=== PATIENT | male | born 1945 | race Caucasian/White ===

== ENCOUNTER 2020-07-08 13:54 | Outpatient (CLI) | payer MEDICARE, SELFPAY ==
--- NOTE | 2020-07-08 13:58 | ECG_ITS ---
Measurements Intervals [place] Rate: 67 P: 52 [place]: 187 QRS: -46 QRSD: 104 T: 52 QT: 396 QTc: 418 Interpretive Statements SINUS RHYTHM FREQUENT ATRIAL PREMATURE COMPLEXES LEFT ANTERIOR FASCICULAR BLOCK ABNORMAL ECG Electronically Signed On 07-08-2020 14:19:01 DIESEL MAINTENANCE TECHNICIAN by Yandel Kamara D.O.
[2020-07-08 14:31] LABS: Anion Gap 7 mmol/L (8-16); Blood Urea Nitrogen 22 mg/dL (9-20); Calcium 9.1 mg/dL (8.4-10.2); Carbon Dioxide 33 mmol/L (22-30); Chloride 99 mmol/L (98-107); Estimated Glomerular Filt Rate > 60; Glucose 108 mg/dL (75-110); Potassium 3.8 mmol/L (3.4-5.0); Sodium 139 mmol/L (137-145)
== END 2020-07-08 13:55 | disposition home or self-care (01) ==
LOC: ANHSURGERY 13:58
PROVIDERS: Anesthesiology; PCP Internal Medicine; Visit Provider Surgery
DX: Z01.818 Encounter for other preprocedural examination (principal); K40.90 Unilateral inguinal hernia, without obstruction or gangrene, not specified as recurrent; R94.31 Abnormal electrocardiogram [ECG] [EKG]; I10 Essential (primary) hypertension; Z79.899 Other long term (current) drug therapy
CPT/HCPCS: 36415; 80048; 86850; 86900; 86901; 93005

== ENCOUNTER 2020-07-16 00:46 | Outpatient (CLI) | payer MEDICARE, SELFPAY ==
[2020-07-16 18:46] LABS: SARS-CoV-2 RNA PCR Negative
== END 2020-07-16 00:47 | disposition home or self-care (01) ==
LOC: ANHCOVIDDT 00:47
PROVIDERS: PCP Internal Medicine; Visit Provider Surgery
DX: Z01.812 Encounter for preprocedural laboratory examination (principal); Z20.822 Contact with and (suspected) exposure to COVID-19
CPT/HCPCS: C9803; U0003; U0005

== ENCOUNTER 2020-07-19 01:52 | Day surgery (SDC) | payer MEDICARE, SELFPAY ==
[2020-07-06 09:18] VITALS: BMI 26.5
--- NOTE | 2020-07-18 14:54 | WPDANESEPPF ---
Anes - Initial Pre Proc Eval Procedure: Operation Date: 07/19/20 08:30 Proposed Procedures p Laparoscopic Right Inguinal Hernia Repair With Mesh, Davinci Assisted - Derek Marvin DO Date/Time: 07/18/20 14:54 Surgeon: Derek Marvin DO Pre Op Diagnosis: Right Inguinal Hernia Patient Data Age: 75 Gender: M Height: 1.78 m Weight: 84 kg Allergies Allergy/AdvReac Type Severity Reaction Status Date / Time No Known Allergies Allergy Verified 07/19/20 06:40 Home Medications Medication Instructions Recorded Confirmed Type acetaminophen 500 mg tablet 500 mg PO Q6H PRN 06/21/20 07/19/20 History atorvastatin 40 mg tablet 40 mg PO QAM 06/21/20 07/19/20 History latanoprost 0.005 % eye drops 1 drp OPHTHALMIC (EYE) DAILY 06/21/20 07/19/20 History lisinopril 10 1 tablet PO QAM 06/21/20 07/19/20 History mg-hydrochlorothiazide 12.5 mg tablet multivitamin,[id number]-hybjpogp 1 tablet PO DAILY 06/21/20 07/19/20 History hydrocodone-acetaminophen [[place]] 1 tablet PO Q4H PRN #10 tablet 07/19/20 Rx Patient hx anesthesia problems: none Family hx anesthesia problems: none PMFSH Past Medical History Medical History (Updated 07/18/20 @ 14:55 by Benigno Lazo MD) Glaucoma High cholesterol Hypertension PEDRITO on CPAP Overweight (BMI 25.0-29.9) Surgical History Surgical History Bursitis of elbow History of bilateral knee replacement Family History Family History Father , age 84 Heart disease Hypertension Mother , age 70 Lymphoma Social History Social History Smoking packs per day: 0.5 Smoking cigarettes per day: 10.0 Years smoked: 10 Smoking pack-years: 5.00 Smoking status: Former smoker Tobacco type: cigarettes Smoking end date: 12/15/77 Alcohol intake: current Alcohol use details: FEW DRINKS/YEAR Substance use: never Living arrangements: with family Additional living arrangements comments: 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 Questions were solicited and answers provided to the satisfaction of the patient/family/POA.
[2020-07-19] VITALS (15 sets, daily range): BP systolic 123–152; BP diastolic 60–94; PULSE 57–89; RESP 11–21; TEMP 36.1–36.3; O2SAT 93–99; BMI 28.0
[2020-07-19] MEDS: ACETAMINOPHEN 500 MG TABLET 1000 MG PO (07:01)
[2020-07-19] MEDS: LACTATED RINGERS 1,000 ML 30 ML IV CONT ×3 (07:01→13:36)
[2020-07-19] MEDS: KETOROLAC 15 MG/ML VIAL (*BKC) IV PUSH (07:02)
--- NOTE | 2020-07-19 07:16 | WPDHPUPDATE1 ---
History and Physical Update Update Date/Time: 07/19/20 07:16 History and Physical has been reviewed, including an updated exam of the patient. There are NO changes in the patient's condition. Risks, benefits, and alternatives have been discussed and questions answered. Patient agrees to proceed with procedure.
[2020-07-19 07:23] LABS: Glucose Point of Care 121 (65-105)
--- NOTE | 2020-07-19 07:23 | SUR.PREOP ---
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
[2020-07-19] MEDS: ceFAZolin 2 GM/D5W 50 ML 2 GM/50 ML BAG IVPB (07:57)
--- NOTE | 2020-07-19 08:08 | WPDANESEPPF ---
Anes - Initial Pre Proc Eval Procedure: Operation Date: 07/19/20 08:30 Proposed Procedures p Laparoscopic Right Inguinal Hernia Repair With Mesh, Davinci Assisted - Derek Marvin DO Date/Time: 07/19/20 08:08 Surgeon: Derek Marvin DO Pre Op Diagnosis: Right Inguinal Hernia Patient Data Age: 75 Gender: M Height: 5 ft 10 in Weight: 88.7 kg Last Vital Signs Temp 97.4 F L 07/19/20 06:47 Pulse 72 07/19/20 06:47 Resp 18 07/19/20 06:47 BP 128/75 07/19/20 06:47 Pulse Ox 98 07/19/20 06:47 Allergies Allergy/AdvReac Type Severity Reaction Status Date / Time No Known Allergies Allergy Verified 07/19/20 06:40 Home Medications Medication Instructions Recorded Confirmed Type acetaminophen 500 mg tablet 500 mg PO Q6H PRN 06/21/20 07/19/20 History atorvastatin 40 mg tablet 40 mg PO QAM 06/21/20 07/19/20 History latanoprost 0.005 % eye drops 1 drp OPHTHALMIC (EYE) DAILY 06/21/20 07/19/20 History lisinopril 10 1 tablet PO QAM 06/21/20 07/19/20 History mg-hydrochlorothiazide 12.5 mg tablet multivitamin,dq-qorf-omumloyc 1 tablet PO DAILY 06/21/20 07/19/20 History Laboratory Tests 07/19/20 07:21 POC Capillary Glucose 121 mg/dl H mg/dl (65-105) Patient hx anesthesia problems: none Family hx anesthesia problems: none PMFSH Past Medical History Medical History (Updated 07/18/20 @ 14:55 by Benigno Lazo MD) Glaucoma High cholesterol Hypertension PEDRITO on CPAP Overweight (BMI 25.0-29.9) Surgical History Surgical History Bursitis of elbow History of bilateral knee replacement Family History Family History Father , age 84 Heart disease Hypertension Mother , age 70 Lymphoma Social History Social History Smoking packs per day: 0.5 Smoking cigarettes per day: 10.0 Years smoked: 10 Smoking pack-years: 5.00 Smoking status: Former smoker Tobacco type: cigarettes Smoking end date: 12/15/77 Alcohol intake: current Alcohol use details: FEW DRINKS/YEAR Substance use: never Living arrangements: with family Additional living arrangements comments: 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 Questions were solicited and answers provided to the satisfaction of the patient/family/POA.
[2020-07-19] MEDS: BUPIVACAINE HCL 0.5% PF 30 ML VIAL INFILTRATE (08:38)
[2020-07-19 09:53] LABS: Glucose Point of Care 115 (65-105)
--- NOTE | 2020-07-19 09:58 | PM.PROC ---
Procedure Note - Detailed Date of procedure: 07/19/20 Pre-op diagnosis: Right Inguinal Hernia Post-op diagnosis: other (Bilateral indirect inguinal hernia) Procedure performed: Laparoscopic bilateral inguinal hernia repair with Progrip mesh, da Zayda assisted Description of procedure: Procedure as well as risks, benefits, and alternatives were discussed with the patient. Written consent was obtained and placed in chart prior to procedure. Patient was brought back to surgical suite. He was placed supine on operating table. Time-out was done to confirm patient and procedure. He was then intubated by Anesthesia Department. His abdomen was prepped and draped in sterile fashion using chlorhexidine prep. 0.5% bupivacaine with epinephrine was infiltrated at each location for incision. A 12 millimeter transverse incision was made just superior to the umbilicus using a 15 blade scalpel. Blunt dissection was carried out down to the linea alba. A vertical incision was made at the linea alba using a 15 blade scalpel. The peritoneum was then bluntly entered. A 12 millimeter trocar was inserted and carbon dioxide insufflation was used to create a pneumoperitoneum. A camera was inserted and the abdominal cavity was inspected. The patient was placed in slight Trendelenburg position. An 8 millimeter incision was made on the right lateral abdomen and an 8 millimeter trocar was inserted under direct visualization. Another 8 millimeter incision was made in the left lateral abdomen and an 8 millimeter trocar was inserted under direct visualization. The robotic arms were brought up to the patient's bedside and secured to the ports. The camera and instruments were inserted. I then moved over to the robotic console and took control of the camera and instruments. After careful inspection of the abdominal cavity, I began scoring the peritoneum along the right lower quadrant using scissors with electrocautery. The preperitoneal plane was entered and this was carefully dissected caudally along the inferior epigastric vessels. Careful dissection with scissors with electrocautery and blunt dissection was used to continue this dissection. I dissected far enough laterally to allow for mesh placement, and also dissected medially to identify the pubic arch and Jose's ligament. The hernia sac was identified and carefully dissected posteriorly. The cord contents were also identified and the peritoneum was carefully dissected far enough posteriorly to allow for mesh placement. Once an adequate pocket was created, I then placed the mesh within the preperitoneal pocket and carefully unfolded it. The mesh was centered on the hernia defect with adequate overlap circumferentially. The inferior edge of the mesh was inspected to ensure that it was far enough away from the peritoneal edge. The mesh appeared in proper position overlying the entire myopectineal orifice. The peritoneum was then closed over the mesh using a 3-0 V-lock running absorbable suture. I then began scoring the peritoneum along the left lower quadrant using scissors with electrocautery. The preperitoneal plane was entered and this was carefully dissected caudally along the inferior epigastric vessels. Careful dissection with scissors with electrocautery and blunt dissection was used to continue this dissection. I dissected far enough laterally to allow for mesh placement, and also dissected medially to identify the pubic arch and Jose's ligament. The hernia sac was identified and carefully dissected posteriorly. The cord contents were also identified and the peritoneum was carefully dissected far enough posteriorly to allow for mesh placement. Once an adequate pocket was created, I then placed the mesh within the preperitoneal pocket and carefully unfolded it. The mesh was centered on the hernia defect with adequate overlap circumferentially. The inferior edge of the mesh was inspected to ensure that it was far enough
[2020-07-19] MEDS: oxyCODONE HCL (*CRX) 5 MG TAB IR PO (11:32)
[2020-07-19] MEDS: IBUPROFEN 600 MG TABLET PO (14:45)
--- NOTE | 2020-07-19 16:31 | SUR.PHASEII ---
1540 - dr. fish in room talking with pt
== END 2020-07-19 15:45 | disposition home or self-care (01) ==
PROVIDERS: PCP Internal Medicine; Visit Provider Surgery
PROC: 8E0Y4CZ Robotic Assisted Procedure of Lower Extremity, Percutaneous Endoscopic Approach (ICD-10-PCS; CPT 49650; principal; 2020-07-19 08:30)
DX: K40.20 Bilateral inguinal hernia, without obstruction or gangrene, not specified as recurrent (principal); I10 Essential (primary) hypertension; E78.00 Pure hypercholesterolemia, unspecified; G47.33 Obstructive sleep apnea (adult) (pediatric); H40.9 Unspecified glaucoma; Z87.891 Personal history of nicotine dependence
CPT/HCPCS: 49650; S2900; 82948; A9270; C1781; J0330; J0690; J1170; J1885; J2250; J2405; J3010; J7030; J7120

== ENCOUNTER 2022-02-27 14:13 | Observation (INO) | payer MEDICARE, SELFPAY ==
[2022-02-27] VITALS (24 sets, daily range): BP systolic 108–135; BP diastolic 75–96; PULSE 63–94; RESP 14–22; TEMP 36.3–36.7; O2SAT 94–99
--- NOTE | ~2022-02-27 | XR_ITS ---
EXAMINATION: XR chest 1V portable DATE: 02/27/2022 14:59 INDICATION: Stroke. TECHNIQUE: A single frontal view of the chest was obtained. COMPARISON: None. FINDINGS: The chest demonstrates clear lungs without pneumonia, pleural effusion, or pneumothorax. Th e heart size is normal. IMPRESSION: 1. No acute cardiopulmonary disease. Reviewed, dictated and finalized at location A.
--- NOTE | ~2022-02-27 | CT_ITS ---
EXAMINATION: CT brain wo con DATE: 02/27/2022 14:40 INDICATION: POSSIBLE CODE STROKE . TECHNIQUE: Computed tomography (CT) of the head was performed without intravenous contrast. The mA wa s adjusted according to patient size. Iterative reconstruction technique was employed. The dose-lengt h product was 681.00 mGy-cm. COMPARISON: None FINDINGS: No acute intracranial hemorrhage or extra-axial fluid collection. No hydrocephalus, mass, or herniation. No acute ischemic infarct. Unremarkable dural venous sinus attenuation. No acute osseous abnormality. The aerated spaces are clear. Mild atrophy and chronic white matter change. Atherosclerotic intracranial calcification. Small, old left basal ganglia lacunar infarct. Left basal ganglia calcification. IMPRESSION: No acute intracranial process. Results reported telephonically to Dr. Knutson by Dr. Aponte at 2:46 PM on 02/27/2022. Reviewed, dictated and finalized at location K. IMPRESSION: No acute intracranial process. Results reported telephonically to Dr. Knutson by Dr. Aponte at 2:46 PM on .
--- NOTE | ~2022-02-27 | CT_ITS ---
EXAMINATION: CTA neck DATE: 02/27/2022 17:29 INDICATION: tia TECHNIQUE: Computed tomographic angiography (CTA) of the neck was performed with 100 mL Omnipaque-350 intravenous contrast. Automated exposure control and iterative reconstruction technique were employe d. The dose-length product was 752.16 mGy-cm. Maximum intensity projection and volume rendered 3D-rec onstructions were created by the technologist on a separate workstation. COMPARISON: CT brain 02/27/2022. FINDINGS: CTA NECK: Aortic arch and proximal great vessels: Mild atherosclerotic calcifications at the visualized aortic arch. Mild arch ectasia. Right common carotid, carotid bifurcation, and internal carotid artery: Mild calcified plaque in the distal cavernous carotid.There is 0% stenosis of the proximal right internal carotid artery relative to normal distal artery lumen diameter (NASCET criteria). Left common carotid, carotid bifurcation, and internal carotid artery: Mild calcified plaque in the d istal cavernous carotid.There is 0% stenosis of the proximal left internal carotid artery relative to normal distal artery lumen diameter (NASCET criteria). Vertebral arteries: Mild calcified plaque in the intracranial portion of the left distal vertebral ar ana. No significant plaque or stenosis. Other findings: Moderate coronary artery calcification. Degenerative change in the cervical spine. Se nescent changes in the lungs. Small focus of atelectasis/scar in the medial left upper lobe. IMPRESSION: No significant carotid or vertebral stenosis. Reviewed, dictated and finalized at location K.
--- NOTE | ~2022-02-27 | MR_ITS ---
EXAMINATION: MR brain/brain stem wo con DATE: 02/28/2022 08:05 INDICATION: Change ischemic episode with slurred speech TECHNIQUE: Magnetic resonance imaging (MRI) of the brain and brainstem was performed without intraven ous contrast. Sequences included sagittal and axial T1-weighted SE, axial diffusion-weighted FS SE, a xial T2*-weighted GRE, axial 3D SWAN, axial T2-weighted FLAIR, and axial T2-weighted FSE. Apparent di ffusion coefficient (ADC) maps were created. COMPARISON: Head CT dated 02/27/2022 FINDINGS: There are no areas of restricted diffusion to suggest acute infarction. No intracranial hemorrhage or abnormal intracranial mass lesion. There are a couple tiny foci of nonspecific increased T2-weighted signal intensity in the cerebral white matter is within normal limits for age. There are no intrapar enchymal signal abnormalities seen on the other pulse sequences. The ventricles are symmetric and nor mal in size. There are no abnormal extra-axial fluid collections. Flow voids are seen in the cerebral arteries on the T2-weighted sequences consistent with their expected patency. Visualized orbits and soft tissues are unremarkable. Mild mucosal thickening in the bilateral ethmoid sinuses. IMPRESSION: 1. Normal aging brain. No acute intracranial process. Reviewed, dictated and finalized at location A.
--- NOTE | 2022-02-27 14:24 | ECG_ITS ---
Measurements Intervals [place] Rate: 87 P: 48 [place]: 180 QRS: -59 QRSD: 109 T: 60 QT: 366 QTc: 441 Interpretive Statements SINUS RHYTHM LEFT ANTERIOR FASCICULAR BLOCK ABNORMAL ECG COMPARED TO ECG 07/08/2020 14:33:41 NO SIGNIFICANT CHANGES Electronically Signed On 02-27-2022 14:36:17 CDT by Yandel Kamara D.O.
--- NOTE | 2022-02-27 14:25 | PC.NURSE ---
pt presented to ed code stroke stop sign. ERP dr orta evaluated pt, fast 0. Neuro work up to be completed per erp request.
[2022-02-27 14:41] LABS: Basophils Absolute Auto 0.1 K/mm3 (0.0-0.1); Basophils Percent Auto 0.6 % (0.2-1.2); Eosinophils Absolute Auto 0.1 K/mm3 (0-0.3); Eosinophils Percent Auto 0.6 % (0-4.4); Hematocrit 43.5 % (42.0-52.0); Immature Granulocyte Absolute 0.03 K/mm3 (0.00-0.031); Immature Granulocyte Percent A 0.3 % (0-0.5); Mean Corpuscular HGB Conc 32.2 g/dl (32-36); Mean Corpuscular Hemoglobin 28.3 pg (26-34); Mean Corpuscular Volume 87.9 fl (80-100); Monocytes Absolute Auto 0.8 K/mm3 (0.1-0.6); Neutrophils Absolute Auto 7.2 K/mm3 (1.3-6.7); Neutrophils Percent Auto 72.5 % (45.5-73.1); Platelet Count Result 198 k/mm3 (150-375); Red Blood Count 4.95 M/mm3 (4.6-6.20)
[2022-02-27 14:46] LABS: Glucose Point of Care 181 mg/dl (65-105)
[2022-02-27 14:50] LABS: Alanine Aminotransferase 29 U/L (6-50); Albumin Level 4.4 g/dL (3.5-5.1); Alkaline Phosphatase 92 U/L (38-126); Anion Gap 11 mmol/L (8-16); Aspartate Amino Transferase 24 U/L (17-59); Bilirubin,Total 0.4 mg/dL (0.2-1.3); Blood Urea Nitrogen 18 mg/dL (9-20); Calcium 9.2 mg/dL (8.4-10.2); Carbon Dioxide 29 mmol/L (22-30); Chloride 96 mmol/L (98-107); Estimated CRCL calculation 64 ml/min; Estimated Glomerular Filt Rate > 60; Glucose 173 mg/dL (65-110); Potassium 3.5 mmol/L (3.4-5.0); Sodium 136 mmol/L (137-145)
[2022-02-27 14:53] LABS: INR 1.1; Partial Thromboplastin Time 28.3 SECONDS (22.3-36.8); Prothrombin Time 13.6 Seconds (11.1-14.7)
--- NOTE | 2022-02-27 14:57 | PC.NURSE ---
xray at bedside.
[2022-02-27 15:02] LABS: Troponin I < 0.012 ng/mL (0.000-0.034)
--- NOTE | 2022-02-27 15:11 | ED.GENADULT ---
HPI - General Adult General Chief complaint: Neuro Symptoms/Deficit Stated complaint: I'm having a stroke Time Seen by Provider: 02/27/22 14:47 History of Present Illness HPI narrative: 77-year-old male past medical history of HLD, HTN presents to our department because of suspected stroke. 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 Symptoms were completely resolved after 10 to 15 minutes and on arrival he is neuro intact with no residual symptoms. Related Data Home Medications Medication Instructions Recorded Confirmed atorvastatin 40 mg tablet 40 mg PO QAM 06/21/20 08/05/20 latanoprost 0.005 % eye drops 1 drp ophthalmic (eye) DAILY 06/21/20 08/05/20 lisinopril 10 1 tablet PO QAM 06/21/20 08/05/20 mg-hydrochlorothiazide 12.5 mg tablet multivitamin,xj-bclo-pxhadsed 1 tablet PO DAILY 06/21/20 08/05/20 (Complete Multivitamin tablet) Allergies Allergy/AdvReac Type Severity Reaction Status Date / Time No Known Allergies Allergy Verified 02/27/22 14:47 Review of Systems Review of Systems: CONSTITUTIONAL: Denies fever, chills, or sweats. EYES: Denies visual changes, redness, or discharge. ENT: Denies rhinorrhea, congestion, sore throat, or otalgia. CARDIOVASCULAR: Denies chest pain, palpitations, or edema. RESPIRATORY: Denies cough or dyspnea. GASTROINTESTINAL: Denies abdominal pain, nausea, vomiting, or diarrhea. GENITOURINARY: Denies dysuria or hematuria. SKIN: Denies rash or itching. MUSCULOSKELETAL: Denies back pain, joint pain, or myalgia. NEUROLOGIC: Denies headache, numbness, or weakness. PSYCHIATRIC: Denies anxiety or depression. [facility] Past Medical History Medical History (Updated 02/27/22 @ 15:18 by Yao Knutson DO) Diabetes type 2, controlled Glaucoma High cholesterol Hypertension PEDRITO on CPAP Overweight (BMI 25.0-29.9) Surgical History Surgical History Bursitis of elbow H/O inguinal hernia repair 07/19/20 Laparoscopic bilateral inguinal hernia repair with Progrip mesh, da Zayda assisted History of bilateral knee replacement Family History Family History Father , age 84 Heart disease Hypertension Mother , age 70 Lymphoma Sibling Diabetes mellitus Hypertension Social History Social History Smoking packs per day: 0.5 Smoking cigarettes per day: 10.0 Years smoked: 10 Smoking pack-years: 5.00 Smoking status: Former smoker Tobacco type: cigarettes Smoking end date: 12/15/77 Alcohol intake: current Alcohol use details: FEW DRINKS/YEAR Substance use: never Additional living arrangements comments: 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 HEAD: Normocephalic, atraumatic. EYES: PERRLA and EOMI. ENT: Nares clear, no rhinorrhea or epistaxis. Mucous membranes moist. NECK: Supple. CHEST: Clear to auscultation. No respiratory distress. HEART: Regular rate and rhythm. No murmur heard. Normal peripheral pulses. ABDOMEN: Soft, nontender, nondistended, normal active bowel sounds. EXTREMITIES: Normal range of motion. No edema. SKIN: Warm, dry, no rash. NEURO: No focal deficits. Alert and oriented x3. PSYCH: Normal mood and affect. Course Vital Signs Vital signs: Vital Signs Temperature 97.6 F 02/27/22 14:15 Pulse Rate 94 02/27/22 14:15 Respiratory Rate 16 02/27/22 14:15 Blood Pressure 133/86 02/27/22 14:15 Pulse Oximetry 98 02/27/22 14:15 Oxygen Delivery Room Air 02/27/22 14:15 Temperature 97.6 F 02/27/22 14:15 Pulse Rate 77 02/27/22 15:30 Respiratory
[2022-02-27] MEDS: ASPIRIN 81 MG CHEWABLE TABLET 324 MG PO (15:28)
--- NOTE | 2022-02-27 16:59 | PM.IMHP ---
H&P: HPI History of Present Illness Date/Time: 02/27/22 16:59 Chief Complaint: Slurred speech Narrative: This is a 77-year-old male patient who has a history of hyperlipidemia and hypertension. 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 Once the patient came to the emergency room he had no residual affects. He had no prior history of TIA or stroke. No focal weakness. All of his neuro is were intact when he came to the emergency room. He was speaking without difficulty. Sodium was slightly low at 136. Glucose 173. Neck CTA shows no significant carotid or vertebral stenosis. Chest x-ray was read as no acute cardiopulmonary disease. Head CT was read as no acute intracranial process. Awaiting MRI results. The patient was given full-strength aspirin. The patient is being admitted to observation status on the date of service of 02/27/2022. Review of Systems Review of Systems: See HPI All systems reviewed & are unremarkable except as noted in HPI and below Constitutional: Constitutional: Reports as per HPI and Reports no additional constitutional complaints Eyes: Eyes: Reports as per HPI and Reports no additional eye complaints ENT: Reports system reviewed and no additional complaints, except as documented and Reports Normal hearing present Cardiovascular: Cardiovascular: Reports no additional cardiovascular complaints Respiratory: Respiratory: Reports no additional respiratory complaints and Reports no additional respiratory complaints Gastrointestinal: Gastrointestinal: Reports as per HPI and Reports no additional gastrointestinal complaints Musculoskeletal: Musculoskeletal: Reports no additional musculoskeletal complaints Integumentary/Breasts: Skin/Breast: Reports system reviewed and no additional complaints, except as docu and Reports as per HPI Neurologic: Reports system reviewed and no additional complaints, except as documented, Reports as per HPI and Reports Normal hearing present Psychiatric: Psychiatric: Reports no additional psychiatric complaints and Reports as per HPI Endocrine: Endocrine: Reports no additional endocrine complaints Hematologic/Lymphatic: Hematologic/Lymphatic: Reports no additional hematologic/lymphatic complaints Allergic/Immunologic: Allergic/Immunologic: Reports no additional allergic/immunologic complaints [facility] Past Medical History Medical History Diabetes type 2, controlled Glaucoma High cholesterol Hypertension PEDRITO on CPAP Overweight (BMI 25.0-29.9) Surgical History Surgical History Bursitis of elbow H/O inguinal hernia repair 2/2/21 Laparoscopic bilateral inguinal hernia repair with Progrip mesh, da Zayda assisted History of bilateral knee replacement Family History Family History Father , age 84 Heart disease Hypertension Mother , age 70 Lymphoma Sibling Diabetes mellitus Hypertension Social History Social History (Updated 02/27/22 @ 21:32 by Alondra Vivar NP) Social History: The patient lives with his 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 He has a 4 children. 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 He is a former smoker. In rarely drinks. No marijuana or illicit drugs. 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
--- NOTE | 2022-02-27 17:34 | ADMGEN ---
This patient, Oj Lewis, was admitted to Medical Room 341-01. Patient/family oriented to hospital policies and general routines including ID bracelet, bed and alarms, visiting hours, pain management, procedures, bathroom and other care routines, personal items, smoking policy, room service/diet, and visiting hours. Information on how to activate the Rapid Response Team has been discussed. Patient/Family are encouraged to report perceived risks to care and to ask questions if they do not understand what they are told or what they should do.
[2022-02-28] VITALS (9 sets, daily range): BP systolic 125–132; BP diastolic 79–84; PULSE 56–78; RESP 16; TEMP 36.6–36.7; O2SAT 97–99
--- NOTE | 2022-02-28 | ECHO_ITS ---
Patient Info Name: Oj Lewis Age: 77 years : 1945 Gender: Male Ht: 70 in Wt: 197 lbs BSA: 2.12 m2 HR: 69 bpm BP: 129 / 79 mmHg Heart Rhythm: Sinus Rhythm Exam Date: 02/28/2022 11:30 AM Exam Location: [facility] Pulmonary Patient Status: Inpatient Admit Date: 02/27/2022 Staff Ordering Physician: Alondra Vivar NP Vending Technician: Daniel Davis RDCS Attending Provider: Gaurav Qureshi MD Referring Physician: Ghazala PURVIS; Exam Type: CA echo doppler w bubble study Study Info Indications - TIA Complete two-dimensional, color flow and Doppler transthoracic echocardiogram is performed with agitated saline. Summary 1. Technically difficult study. 2. Left ventricular chamber dimension is normal. 3. Left ventricular systolic function is normal, estimated at >70%. 4. There is no increased left ventricular wall thickness. 5. The left ventricular diastolic function is grade I diastolic dysfunction. 6. No evidence for siomc-io-euer shunt with injection of agitated saline with or without Valsalva. 7. There is trace tricuspid valve regurgitation. 8. Unable to estimate PA systolic pressure due to poor spectral resolution of tricuspid regurgitant jet velocity. 9. There is trace mitral valve regurgitation. 10. There is no aortic valve stenosis. Recommendations * Consider DARELL if clinically indicated. Left Ventricle Left ventricular chamber dimension is normal. Left ventricular systolic function is normal, estimated at >70%. There is no increased left ventricular wall thickness. The left ventricular diastolic function is grade I diastolic dysfunction. Technically difficult study. Right Ventricle Right ventricular chamber dimension is normal. Right ventricular systolic function is normal. Left Atria Left atrial chamber dimension is normal. Right Atria Right atrial chamber dimension is normal. Atrial Septum No evidence for duoze-dw-zspi shunt with injection of agitated saline with or without Valsalva. Aortic Valve The aortic valve is not well visualized. There is no aortic valve stenosis. There is mild aortic valve regurgitation. Pulmonic Valve The pulmonic valve is not well visualized. Mitral Valve The mitral valve has normal leaflets. There is trace mitral valve regurgitation. The mitral valve annulus is mildly calcified. Tricuspid Valve The tricuspid valve leaflets are normal. There is trace tricuspid valve regurgitation. Unable to estimate PA systolic pressure due to poor spectral resolution of tricuspid regurgitant jet velocity. Pericardium/Pleural The pericardium appears normal. There is no pericardial effusion. Aorta The aortic root size at the sinus of Valsalva is normal. Left Ventricular Outflow Tract Name Value Normal LVOT 2D LVOT Diameter 2.0 cm LVOT Doppler LVOT Peak Gradient 5 mmHg LVOT Mean Gradient 4 mmHg LVOT VTI 21 cm LVOT VTI/AV VTI Ratio 0.9 LVOT Stroke Volume 64 ml LVO
[2022-02-28 05:38] LABS: Basophils Absolute Auto 0.1 K/mm3 (0.0-0.1); Basophils Percent Auto 0.7 % (0.2-1.2); Eosinophils Absolute Auto 0.2 K/mm3 (0-0.3); Eosinophils Percent Auto 2.1 % (0-4.4); Hematocrit 40.9 % (42.0-52.0); Hemoglobin 13.2 g/dL (14.0-18.0); Immature Granulocyte Absolute 0.03 K/mm3 (0.00-0.031); Immature Granulocyte Percent A 0.4 % (0-0.5); Lymphocytes Absolute Auto 1.81 K/mm3 (0.9-3.2); Mean Corpuscular HGB Conc 32.3 g/dl (32-36); Mean Corpuscular Volume 86.7 fl (80-100); Mean Platelet Volume 10.5 fl (7.4-10.4); Monocytes Absolute Auto 0.9 K/mm3 (0.1-0.6); Neutrophils Absolute Auto 4.3 K/mm3 (1.3-6.7); Neutrophils Percent Auto 59.8 % (45.5-73.1); Platelet Count Result 189 k/mm3 (150-375); Red Blood Count 4.72 M/mm3 (4.6-6.20); Red Cell Distribution Width 13.8 % (11.5-14.5); White Blood Count 7.2 K/mm3 (4.5-10.0)
[2022-02-28 05:55] LABS: Alanine Aminotransferase 26 U/L (6-50); Albumin Level 3.7 g/dL (3.5-5.1); Alkaline Phosphatase 81 U/L (38-126); Anion Gap 9 mmol/L (8-16); Aspartate Amino Transferase 20 U/L (17-59); Bilirubin,Total 0.3 mg/dL (0.2-1.3); Blood Urea Nitrogen 18 mg/dL (9-20); CRP < 0.5 mg/dL (<1.0); Calcium 8.8 mg/dL (8.4-10.2); Carbon Dioxide 26 mmol/L (22-30); Chloride 103 mmol/L (98-107); Estimated CRCL calculation 64 ml/min; Estimated Glomerular Filt Rate > 60; Glucose 114 mg/dL (65-110); Magnesium 1.9 mg/dL (1.6-2.3); Potassium 3.7 mmol/L (3.4-5.0); Sodium 138 mmol/L (137-145)
[2022-02-28 07:09] LABS: Hemoglobin A1C 6.1 % (<5.7)
[2022-02-28 08:21] LABS: Glucose Point of Care 124 mg/dl (65-105)
[2022-02-28] MEDS: LATANOPROST 0.005% OP SOLN 2.5 ML BTL 1 DROP EACH EYE (08:33)
[2022-02-28] MEDS: ATORVASTATIN 40 MG TABLET PO (08:33)
[2022-02-28] MEDS: lisinopriL 10 MG TABLET PO (08:33)
[2022-02-28] MEDS: hydroCHLOROthiazide 12.5 MG CAPSULE PO (08:33)
[2022-02-28] MEDS: ASPIRIN 81 MG ENTERIC TABLET PO (08:33)
[2022-02-28] MEDS: THERAPEUTIC MULTIVITAMINS/MINERALS TAB (*BKC) 1 TABLET PO (08:35)
--- NOTE | 2022-02-28 12:00 | WPDNEURCNPN ---
Assessment and Plan Assessment and plan (1) Brain TIA: Code(s): G45.9 - Transient cerebral ischemic attack, unspecified Status: Acute Plan TIA, echocardiogram pending, patient can be continued aspirin and Plavix addition to antihypertensive medication depending on the results of echocardiogram if no further evaluation is necessary discussed with the patient and her Consult date: 02/28/22 Time Seen: 11:00 Reason for consult: stroke HPI: Oj Lewis is a 77 year old male admitted to the hospital through the emergency room for the possibility of the stroke-like symptoms in addition to the ongoing history of 1. Hypertension 2. Hyperlipidemia. As per the review of the ER records patient had an episode of 10 to 15 minutes period of expressive aphasia with subsequent complete resolution and history of taking atorvastatin 40 mg daily lisinopril 10 mg daily not allergic to any specific medication but history of type 2 diabetes mellitus, hypercholesterolemia, hypertension, glaucoma and obstructive sleep apnea for which she is on CPAP, she is a former smoker by history current alcohol intake and initial exam in the emergency room was unremarkable vital signs were normal routine lab studies were normal except blood sugar of 173 sodium 136 MRI of the brain is normal neck CTA is negative Review of Systems Review of Systems: All systems reviewed & are unremarkable except as noted in HPI and below PMFSH Past Medical History Medical History Diabetes type 2, controlled Glaucoma High cholesterol Hypertension PEDRITO on CPAP Overweight (BMI 25.0-29.9) Surgical History Surgical History Bursitis of elbow H/O inguinal hernia repair 07/19/20 Laparoscopic bilateral inguinal hernia repair with Progrip mesh, da Zayda assisted History of bilateral knee replacement Family History Family History Father , age 84 Heart disease Hypertension Mother , age 70 Lymphoma Sibling Diabetes mellitus Hypertension Social History Social History (Updated 02/27/22 @ 21:32 by Alondra Vivar NP) Social History: The patient lives with his and 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 He has a 4 children. 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 He is a former smoker. In rarely drinks. No marijuana or illicit drugs. 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 Spiritual care concerns: No Agree to blood products: Yes Meds Home Medications and Allergies Home Medications Medication Instructions Recorded Confirmed Type atorvastatin 40 mg tablet 40 mg PO QAM 06/21/20 02/27/22 History latanoprost 0.005 % eye drops 1 drp ophthalmic (eye) DAILY 06/21/20 02/27/22 History lisinopril 10 1 tablet PO QAM 06/21/20 02/27/22 History mg-hydrochlorothiazide 12.5 mg tablet multivitamin,ar-onac-wrfudeur 1 tablet PO DAILY 06/21/20 02/27/22 History (Complete Multivitamin tablet) metformin 500 mg tablet See Rx Instructions .Route 02/07/22 02/27/22 Rx .COMPLEX #90 tabs Allergies Allergy/AdvReac Type Severity Reaction Status Date / Time No Known Allergies Allergy Verified 02/27/22 17:45 Vital Signs Vital Signs - 24 hr 02/27/22 14:15 02/27/22 14:43 02/27/22 14:44 Temperature 36.4 C Pulse Rate 94 83 82 Respiratory Rate 16 14 14 Blood Pressure 133/86 133/86 133/86 Pulse Oximetry 98 98 98 Oxygen Delivery Room Air 02/27/22 14:43 02/27/22 14:44 02/27/22 14:45 Temperature Pulse Rate 85 82 77 Respiratory Rate 20 19 19 Blood P
[2022-02-28 12:14] LABS: Glucose Point of Care 126 mg/dl (65-105)
[2022-02-28 17:19] LABS: Glucose Point of Care 165 mg/dl (65-105)
--- NOTE | 2022-02-28 17:20 | PM.IMPN ---
Progress Note: A&P Assessment and Plan (1) Brain TIA: Code(s): G45.9 - Transient cerebral ischemic attack, unspecified Status: Acute Assessment and Plan: -Continue aspirin, add plavix -continue with Lipitor -CT of the brain was negative -carotid CTA negative -echo with bubble study - pending. -MRI negative. -neurology consult was greatly be appreciated. (2) Diabetes type 2, controlled: Code(s): E11.9 - Type 2 diabetes mellitus without complications Status: Chronic Assessment and Plan: Chronic, stable. A1c 6.1% -hold metformin due to the recent dye injection for the CT -Accu-Cheks AC and HS -sliding scale insulin (3) PEDRITO on CPAP: Code(s): G47.33 - Obstructive sleep apnea (adult) (pediatric); Z99.89 - Dependence on other enabling machines and devices Status: Chronic Assessment and Plan: Chronic, continue with CPAP settings that he has at home/auto titrate (4) High cholesterol: Code(s): E78.00 - Pure hypercholesterolemia, unspecified Status: Chronic Assessment and Plan: Chronic, check lipid panel. continue with Lipitor (5) Hypertension: Qualifiers: Hypertension type: essential hypertension Qualified Code(s): I10 - Essential (primary) hypertension Code(s): I10 - Essential (primary) hypertension Status: Chronic Assessment and Plan: chronic, stable, BP trend reviewed, - continue lisinopril/hydrochlorothiazide Time Spent With Patient Time with patient: 15 - 25 minutes Subjective Date/time seen: 02/28/22 17:20 Interval history: No new complaints or overnight events. Aphasia and slurred speech resolved. Review of Systems Review of Systems: All systems reviewed & are unremarkable except as noted in HPI and below Exam Narrative: General:??? No acute distress.?? nontoxic appearing.?sitting up in bed HEENT:??? Normocephalic, atraumatic, PERRL, EOM intact,? sclera nonicteric.? moist mucous membranes. Tongue midline. Neck:??Supple. No JVD Respiratory:??Respirations are nonlabored.? Lung sounds? clear to auscultation bilaterally without adventitious breath sounds Cardiovascular:??Regular rate and rhythm with S1-S2.? no murmurs, rubs or gallops. Gastrointestinal:??Abdomen is soft, nontender, and nondistended with positive bowel sounds in all 4 quadrants. no suprapubic or CVA tenderness Skin:??Warm and dry. Normal for ethnicity. Fair turgor Extremities:??No cyanosis, clubbing, or edema. Radial and pedal pulses palpable and equal. grossly normal range of motion in all 4 extremities Neurological:??Alert and oriented x4.? Cranial nerves 2-12 are grossly intact. Speech is clear and appropriate. Hand grasps and Dorsi/plantar flexion equal bilaterally.? no tremors or fasciculations. No pronator drift. muscle strength 5/5 all extremities. Intact heel to woo. Intact finger to nose. Psychiatric:??Good eye contact.? Neutral mood and affect.? Cooperative with examination.? Objective Data Vital Signs Vital Signs: Vital Signs - 24 hr 02/27/22 17:40 02/27/22 18:02 02/27/22 20:00 Temperature 97.4 F L Pulse Rate 64 70 Respiratory Rate 18 Blood Pressure 124/75 Pulse Oximetry 99 Oxygen Delivery Room Air 02/27/22 22:00 02/27/22 22:26 02/28/22 00:00 Temperature 98.1 F Pulse Rate 69 78 56 L Respiratory Rate 16 Blood Pressure 121/83 Pulse Oximetry 99 95 Oxygen Delivery Room Air 02/28/22 04:00 02/28/22 05:53 02/28/22 08:00 Temperature 98.1 F Pulse Rate 62 70 Respiratory Rate 16 Blood Pressure 129/79 Pulse Oximetry 99 Oxygen Delivery Room Air 02/28/22 08:00 02/28/22 12:00 02/28/22 15:03 Temperature 98.0 F Pulse Rate 68 76 78 Respiratory Rate 16 Blood Pressure 132/82 Pulse Oximetry 97 Oxygen Delivery 02/28/22 16:00 Temperature Pulse Rate 77 Respiratory Rate Blood Pressure Pulse Oximetry Oxygen Delivery Intake/Output Int
[2022-02-28 20:56] LABS: Glucose Point of Care 145 mg/dl (65-105)
[2022-03-01] VITALS: PULSE 73
[2022-03-01 01:05] VITALS: PULSE 68
[2022-03-01 04:00] VITALS: PULSE 73
[2022-03-01 04:50] VITALS: BP 111/76; PULSE 72; RESP 18; TEMP 36.4; O2SAT 96
[2022-03-01 05:51] LABS: Cholesterol 94 mg/dL (0-200); HDL Direct 31 mg/dL; Triglycerides 76 mg/dL (<150)
[2022-03-01 06:01] LABS: LDL Cholesterol Direct 51 mg/dL
[2022-03-01 08:00] VITALS: PULSE 72
[2022-03-01 08:27] LABS: Glucose Point of Care 116 mg/dl (65-105)
[2022-03-01] MEDS: THERAPEUTIC MULTIVITAMINS/MINERALS TAB (*BKC) 1 TABLET PO (08:33)
[2022-03-01] MEDS: ASPIRIN 81 MG ENTERIC TABLET PO (08:33)
[2022-03-01] MEDS: lisinopriL 10 MG TABLET PO (08:34)
[2022-03-01] MEDS: CLOPIDOGREL BISULFATE 75 MG TABLET PO (08:34)
[2022-03-01] MEDS: ATORVASTATIN 40 MG TABLET PO (08:34)
[2022-03-01] MEDS: LATANOPROST 0.005% OP SOLN 2.5 ML BTL 1 DROP EACH EYE (08:34)
[2022-03-01] MEDS: hydroCHLOROthiazide 12.5 MG CAPSULE PO (08:34)
--- NOTE | 2022-03-01 09:06 | PM.DS ---
DS: Admitting Diagnosis Discharge Date 03/01/2022 1024 Admitting Diagnosis TIA Type 2 diabetes mellitus, chronic Hyperlipidemia, chronic Hypertension, chronic DS: Discharge Diagnosis Discharge Diagnosis (1) Brain TIA: Code(s): G45.9 - Transient cerebral ischemic attack, unspecified Status: Acute Assessment and Plan: -continue with Lipitor -CT of the brain was negative -carotid CTA negative -echo with bubble study without PFO -MRI negative. -neurology consulted- recommend continuing aspirin and adding plavix x6 weeks. 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 A1c 6.1% -hold metformin due to the recent dye injection for the CT -resume metformin at home dose 72 hours after CTA (3) PEDRITO on CPAP: Code(s): G47.33 - Obstructive sleep apnea (adult) (pediatric); Z99.89 - Dependence on other enabling machines and devices Status: Chronic Assessment and Plan: Chronic, continue with CPAP settings that he has at home/auto titrate (4) High cholesterol: Code(s): E78.00 - Pure hypercholesterolemia, unspecified Status: Chronic Assessment and Plan: Chronic, stable, HDL 31, LDL 51, triglycerides 76 continue with Lipitor (5) Hypertension: Qualifiers: Hypertension type: essential hypertension Qualified Code(s): I10 - Essential (primary) hypertension Code(s): I10 - Essential (primary) hypertension Status: Chronic Assessment and Plan: chronic, stable, BP trend reviewed, - continue lisinopril/hydrochlorothiazide DS: Summary Hospital Course Reason for hospitalization: slurred speech Hospital Course: Oj Lewis is a 77-year-old male with type 2 diabetes mellitus on metformin, hyperlipidemia and hypertension.? He presented to the ED for evaluation of slurred speech on 02/27/22. 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 Once the patient came to the emergency room his symptoms had resolved.? He had no prior history of TIA or stroke.? No focal weakness.?Speech was clear. Sodium was slightly low at 136.? Glucose 173.? Neck CTA showed no significant carotid or vertebral stenosis.? Chest x-ray was without acute cardiopulmonary disease.? Head CT showed no acute intracranial process.? He was given full-strength aspirin.? Patient was admitted to the medical floor and monitored on telemetry. Neurology was consulted and recommended patient be treated with aspirin 81 mg PO daily, as well as plavix 75 mg PO daily for 6 weeks. He was continued on statin therapy and lipid panel showed LDL<70 and triglycerides <150. He was monitored on telemetry and showed no arrhythmia. BP was stable on home medications. He had no return of focal deficits or speech changes during his hospital stay. MRI brain was obtained and negative for acute infarct. His symptoms were attributed to TIA. He and his were counseled extensively on heart healthy diet, physical activity, and medication compliance. He reported an upcoming vacation planned with his , for which he originally was going to leave on the day of discharge. We discussed the risks at length of leaving town, such as high risk for stroke following TIA symptoms and bleeding. He and his were counseled to defer their trip until they could be re-evaluated and cleared by his PCP. He verbalized understanding of this. Outpatient event monitor for 30-days was further evaluation for possible underlying atrial fibrillation, as he did report remote episodes of palpitations prior to admission. He wa
== END 2022-03-01 11:25 | disposition home or self-care (01) ==
LOC: ANHED 15:33 → ANH3MED 17:01
PROVIDERS: Nurse Practitioner; Nurse Practitioner Family; Admitting Provider Chiropractor; Emergency Provider Emergency Medicine; PCP Family Medicine; Visit Provider Chiropractor
DX: G45.9 Transient cerebral ischemic attack, unspecified (principal); R47.01 Aphasia; E11.9 Type 2 diabetes mellitus without complications; G47.33 Obstructive sleep apnea (adult) (pediatric); Z99.89 Dependence on other enabling machines and devices; E78.00 Pure hypercholesterolemia, unspecified; I11.9 Hypertensive heart disease without heart failure; E78.5 Hyperlipidemia, unspecified; H40.9 Unspecified glaucoma; I44.4 Left anterior fascicular block; E66.3 Overweight; Z68.25 Body mass index [BMI] 25.0-25.9, adult; Z72.89 Other problems related to lifestyle; Z87.891 Personal history of nicotine dependence; Z79.84 Long term (current) use of oral hypoglycemic drugs; Z79.82 Long term (current) use of aspirin; Z79.899 Other long term (current) drug therapy; Z83.3 Family history of diabetes mellitus; Z82.49 Family history of ischemic heart disease and other diseases of the circulatory system
CPT/HCPCS: 36415; 70450; 70498; 70551; 71045; 80053; 80061; 82948; 83036; 83735; 84443; 84484; 85025; 85610; 85730; 86140; 93005; 93306; 96375; 99285; A9270; G0378; Q9967

== ENCOUNTER 2022-06-01 09:41 | Outpatient (CLI) | payer MEDICARE, SELFPAY ==
--- NOTE | ~2022-06-01 | NM_ITS ---
EXAMINATION: NM dandre stress w perfusion DATE: 06/01/2022 11:43 INDICATION: Atrial fibrillation. TECHNIQUE: Rest images were obtained following intravenous administration of 10.3 mCi Tc99m tetrofosm in (Myoview). The patient was infused intravenously with Lexiscan (regadenoson). Then, 33.3 mCi Tc99m tetrofosmin (Myoview) was administered intravenously, and stress images were obtained. Data was mumtaz nstructed into short axis and horizontal and vertical long axis SPECT images. Gated SPECT images were also obtained. COMPARISON: None. FINDINGS: There is no definite reversible or fixed perfusion abnormality to suggest ischemia or infar ction. There is no segmental wall motion abnormality. Left ventricular ejection fraction measures > 70%. IMPRESSION: 1. No definite ischemia or infarct. 2. Normal left ventricular ejection fraction measuring >70%. Reviewed, dictated and finalized at location A. Y [employer]
--- NOTE | 2022-06-01 09:49 | EST_ITS ---
Patient Info Name: Oj Lewis Age: 77 years : 1945 Gender: Male Ht: 70 in Wt: 203 lbs BSA: 2.15 m2 Exam Date: 06/01/2022 10:56 AM Exam Location: [facility] Stress Patient Status: Outpatient Admit Date: 06/01/2022 Staff Ordering Physician: Yandel Kamara DO Attending Provider: Yandel Kamara DO Exercise Technologist: Kailee Wilks RDCS Exercise Physician: Yandel Kamara DO Exam Type: CA stress dandre w NM Study Info Indications I48.0 - Paroxysmal atrial fibrillation I48.1 - Persistent atrial fibrillation A regadenoson stress test was performed. Summary 1. 1. Negative lexiscan stress test for ischemic ST changes by ECG criteria. 2. 2. Stable hemodynamics throughout the test. 3. 3. Nuclear scan to follow and will be reported separately. Please correlate with it. 4. 4. Patient informed of the above results. Protocol: Lexiscan Stress ECG Details Stage: REST Duration (min): 0 min : 43 sec HR (bpm): 59 SBP (mmHg): 130 DBP (mmHg): 82 Stage: REST Duration (min): 6 min : 11 sec HR (bpm): 59 SBP (mmHg): 130 DBP (mmHg): 82 Stage: STAGE 1 Duration (min): 0 min : 59 sec HR (bpm): 65 SBP (mmHg): 128 DBP (mmHg): 81 Stage: RECOVERY Duration (min): 1 min : 0 sec HR (bpm): 80 SBP (mmHg): 118 DBP (mmHg): 82 Stage: RECOVERY Duration (min): 2 min : 0 sec HR (bpm): 79 SBP (mmHg): 118 DBP (mmHg): 82 Stage: RECOVERY Duration (min): 3 min : 0 sec HR (bpm): 78 SBP (mmHg): 118 DBP (mmHg): 84 Stage: RECOVERY Duration (min): 3 min : 20 sec HR (bpm): 77 SBP (mmHg): 118 DBP (mmHg): 84 Rest HR: 59 bpm Peak HR: 81 bpm Rest Sys BP: 130 mmHg Peak Sys BP: 128 mmHg Max Pred HR: 145 bpm % Max Pred HR: 56 % Target HR: 123 bpm Max RPP: 10,368 bpm*mmHg Termination Reason: Completed protocol Cardiac Symptoms: Shortness of breath Total Time: 1 min : 0 sec Rest Castrejon BP: 82 mmHg Peak Castrejon BP: 81 mmHg Total Dose: 0.4 mg Resting ECG Sinus rhythm, IRBBB. Stress ECG No ST changes. Arrhythmias None. Report Signatures
== END 2022-06-01 09:42 | disposition home or self-care (01) ==
PROVIDERS: PCP Family Medicine; Visit Provider Internal Medicine Cardiovascular Disease
DX: I48.92 Unspecified atrial flutter (principal); I48.91 Unspecified atrial fibrillation
CPT/HCPCS: 78452; 93017; A9502; J2785